=== PATIENT | male | born 1955 | race Caucasian/White ===

== ENCOUNTER → 2016-06-08 | Outpatient (CLI) | payer BC | LOC: MW.CHRC 07:37 | PROVIDERS: ATTEND Family Medicine | DX: E29.1 Testicular hypofunction (principal) | CPT/HCPCS: 36415; 82670; 84402; 84403 ==

== ENCOUNTER 2020-06-03 11:43 | Day surgery (SDC) | payer BC ==
[~2020-06-03 11:43] MED LIST: Lactated Ringers 1,000 ML IV SCH; Lidocaine 2% 5 ML SDV ONE; Midazolam 1 MG/ML 2 ML SDV ONE; Propofol 200 MG/20 ML SDV ONE; Sodium Chloride 0.9% 10 ML SDV IV PRN; Sodium Chloride 0.9% 10 ML Syringe FLUSH PRN; Sodium Chloride 0.9% 2.5 ML Syringe FLUSH PRN; fentaNYL 100 MCG/2 ML SDV ONE
--- NOTE | 2020-06-03 12:30 | PCM.PREANE ---
Preanesthetic Assessment - Anesthesia/Transfusion/Family Hx Anesthesia History: Prior Anesthesia Without Reaction Family History of Anesthesia Reaction: No Transfusion History: No Prior Transfusion(s) - Review of Systems General: No Symptoms Pulmonary: No Symptoms Cardiovascular: No Symptoms Gastrointestinal: No Symptoms Neurological: No Symptoms Other: Reports: None - Physical Assessment NPO Status Date: 06/03/20 NPO Status Time: 00:05 Height: 5 ft 8 in Weight: 168 lb ASA Class: 2 Mental Status: Alert & Oriented x3 Airway Class: Mallampati = 2 Dentition: Reports: Normal Dentition ROM/Head Extension: Full Lungs: Clear to Auscultation, Normal Respiratory Effort Cardiovascular: Regular Rate, Regular Rhythm - Allergies Allergies/Adverse Reactions: Allergies Allergy/AdvReac Type Severity Reaction Status Date / Time No Known Allergies Allergy Verified 06/03/20 12:25 - Anesthesia Plan Pre-Op Medication Ordered: None - Acknowledgements Anesthesia Type Planned: General Anesthesia Pt an Appropriate Candidate for the Planned Anesthesia: Yes Alternatives and Risks of Anesthesia Discussed w Pt/Guardian: Yes Pt/Guardian Understands and Agrees with Anesthesia Plan: Yes Additional Comments: npo tob quit 12 yearaa ago etoh occ on weekends no cv problems bmi 27 par no questions PreAnesthesia Questionnaire HEENT History: Reports: None Cardiovascular History: Reports: None Respiratory History: Reports: None Gastrointestinal History: Reports: None Genitourinary History: Reports: None Musculoskeletal History: Reports: None Neurological History: Reports: None Psychiatric History: Reports: None Endocrine/Metabolic History: Reports: None Hematologic History: Reports: None Immunologic History: Reports: None Oncologic (Cancer) History: Reports: None Dermatologic History: Reports: Eczema - Past Surgical History Head Surgeries/Procedures: Reports: None HEENT Surgical History: Reports: None Cardiovascular Surgical History: Reports: None Respiratory Surgical History: Reports: None GI Surgical History: Reports: Colonoscopy Male Surgical History: Reports: None Endocrine Surgical History: Reports: None Neurological Surgical History: Reports: None Musculoskeletal Surgical History: Reports: None Oncologic Surgical History: Reports: None Dermatological Surgical History: Reports: None - SUBSTANCE USE Tobacco Use Status *Q: Former Tobacco User Tobacco Use Within Last Twelve Months: No Recreational Drug Use History: No - HOME MEDS Home Medications: Home Meds Hcg Injection 1 injection IM ASDIRECTED 05/28/20 [History] Testosterone Cypionate [Testone Cik] 1 injection IM ASDIRECTED 05/28/20 [History] Triamcinolone Acetonide [Triamcinolone Acetonide 0.1% Crm] 1 applic TOP BID PRN 05/28/20 [History] - CURRENT (IN HOUSE) MEDS Current Meds: Current Medications Lactated Ringer's (Ringers, Lactated) 1,000 mls @ 125 mls/hr IV ASDIRECTED ALBERT Last Admin: 06/03/20 12:24 Dose: 125 mls/hr Documented by: Sodium Chloride (Sodium Chloride 0.9% 10 Ml Syringe) 10 ml FLUSH ASDIRECTED PRN PRN Reason: Keep Vein Open Sodium Chloride (Sodium Chloride 0.9% 2.5 Ml Syringe) 2.5 ml FLUSH ASDIRECTED PRN PRN Reason: Keep Vein Open Sodium Chloride (Sodium Chloride 0.9% 10 Ml Syringe) 10 ml FLUSH ASDIRECTED PRN PRN Reason: Keep Vein Open Sodium Chloride (Sodium Chloride 0.9% 2.5 Ml Syringe) 2.5 ml FLUSH ASDIRECTED PRN PRN Reason: Keep Vein Open Sodium Chloride (Sodium Chloride 0.9% 10 Ml Sdv) 10 ml IV ASDIRECTED PRN PRN Reason: IV Use Discontinued Medications Fentanyl (Fentanyl 100 Mcg/2 Ml Sdv) Confirm Administered Dose 100 mcg .ROUTE .STK-MED ONE Stop: 06/03/20 11:21 Lidocaine (Lidocaine 2% 5 Ml Sdv) Confirm Administered Dose 5 ml .ROUTE .STK-MED ONE Stop: 06/03/20 11:18 Midazolam HCl (Midazolam 1 Mg/Ml 2 Ml Sdv) Confirm Administered Dose 2 mg .ROUTE .STK-MED ONE Stop: 06/03/20 11:21 Propofol (Propofol 200 Mg/20 Ml Sdv) Confirm Administered Dose 400 mg .ROUTE .STK-MED ONE Stop: 06/03/20 11:21
[2020-06-03] MEDS ORDERED: Propofol 200 MG/20 ML SDV ONE (14:11)
--- NOTE | 2020-06-03 14:45 | PCM.OPNOTE ---
- General Post-Op/Procedure Note Date of Surgery/Procedure: 06/03/20 Operative Procedure(s): Screening colonoscopy with biopsy and polypectomy Findings: Ascending colon polyp x 2, transverse colon polyps x 2, transverse colon mass biopsied and inked @ 70 cm. Descending colon polyp, diverticulosis. Pre Op Diagnosis: Family history of colon cancer Post-Op Diagnosis: Diverticulosis, ascending colon polyp x 2, descending colon polyp x 1, transverse colon polyp x 2, tranverse colon mass Anesthesia Technique: MAC Primary Surgeon: Henrietta Frausto Condition: Good
--- NOTE | 2020-06-03 15:12 | PCM.POSTAN ---
POST ANESTHESIA ASSESSMENT - MENTAL STATUS Mental Status: Alert (no anesthetic problems), Oriented - VITAL SIGNS Vital Signs: Last Vital Signs Temp 97.7 F 06/03/20 14:27 Pulse 71 06/03/20 15:03 Resp 13 06/03/20 15:03 BP 98/69 06/03/20 15:03 Pulse Ox 92 L 06/03/20 15:03 - RESPIRATORY Respiratory Status: Respiratory Rate WNL, Airway Patent, O2 Saturation Stable - CARDIOVASCULAR CV Status: Pulse Rate WNL, Blood Pressure Stable - GASTROINTESTINAL GI Status: No Symptoms - POST OP HYDRATION Hydration Status: Adequate & Stable
--- NOTE | 2020-06-03 15:35 | PCM48HPAN ---
Post Anesthesia Note - EVALUATION WITHIN 48HRS OF ANESTHETIC Vital Signs in Normal Range: Yes Patient Participated in Evaluation: Yes Respiratory Function Stable: Yes Airway Patent: Yes Cardiovascular Function Stable: Yes Hydration Status Stable: Yes Pain Control Satisfactory: Yes (Denies pain) Nausea and Vomiting Control Satisfactory: Yes Mental Status Recovered: Yes Vital Signs: Last Vital Signs Temp 36.5 C 06/03/20 14:27 Pulse 71 06/03/20 15:03 Resp 13 06/03/20 15:03 BP 98/69 06/03/20 15:03 Pulse Ox 92 L 06/03/20 15:03 - COMMENTS/OBSERVATIONS Free Text/Narrative:: O2 SAT 94% on RA
--- NOTE | 2020-06-04 16:23 | OR ---
SURGEON: HENRIETTA FRAUSTO MD DATE OF PROCEDURE: 06/03/2020 PREOPERATIVE DIAGNOSIS: Family history of colon cancer. POSTOPERATIVE DIAGNOSES: 1. Ascending colon polyps x2. 2. Transverse colon polyps x2. 3. Transverse colon mass at 70 cm. 4. Descending colon polyp. 5. Diverticulosis. PROCEDURE PERFORMED: Screening colonoscopy with polypectomy and biopsy. PRIMARY SURGEON: Henrietta Frausto MD ANESTHESIA: MAC. INSTRUMENT USED: Olympus colonoscope. EXTENT OF EXAM: To the cecum. PREPARATION: Good. LIMITATIONS: None. INDICATIONS FOR EXAMINATION: The patient is a 65-year-old male who presents to clinic for screening colonoscopy. His brother was diagnosed with colon cancer and his mother possibly had colon cancer as well. He had a colonoscopy 10 years ago, which was normal. I explained the need for repeat colonoscopy. I explained the procedure, expected perioperative course, and the risks. He verbalized understanding and wishes to proceed. PROCEDURE IN DETAIL: The patient was brought to the endoscopy suite and placed in the left lateral decubitus position. A time-out was completed verifying the patient's name, age, date of , allergies, and procedure to be performed. Monitored anesthesia care was induced and continuous oxygen was provided via nasal cannula throughout the procedure. After adequate sedation was achieved, a digital rectal exam was performed. This exam was within normal limits. A well-lubricated colonoscope was inserted into the rectum and advanced under direct visualization to the level of the cecum. The cecum was identified by both visual and anatomic landmarks. A photograph was taken of the cecal cap; however, due to looping of the scope more proximally, I was unable to retroflex the scope within the cecum. The scope was then fully withdrawn while examining the color, texture, anatomy, and integrity of mucosa from the cecum to the anal canal. The patient was noted to have 2 ascending colon polyps. These were small and sessile. They were removed in piecemeal fashion using cold biopsy forceps. A photograph was taken of ascending colon polyp #1. Both were sent to Pathology. Just distal to the hepatic flexure, I noticed a small transverse colon polyp. This was removed in piecemeal fashion using cold biopsy forceps. Another larger polyp was noted. This was removed in piecemeal fashion labeled as transverse colon polyp #2. Just distal to this but still within the proximal transverse colon at 70 cm, the patient was noted to have a large sessile polyp that encompassed half of the circumference of the colonic fold. This was too large for me to remove safely, so a biopsy was taken. This was sent to Pathology, labeled as transverse colon mass. For identification in the future, I submucosally injected 1 mL of ink. The scope was continued to be withdrawn, and there was a sessile polyp within the descending colon, which was removed in a similar manner. The patient was also noted to have diverticulosis within the sigmoid colon. The scope was brought into the rectum and retroflexed to allow visualization of the anal canal opening. This appeared normal, and a photograph was taken. The scope was then straightened out and fully withdrawn. The cecum to anus time was greater than 20 minutes. The patient tolerated the procedure well and was transferred to the PACU in stable condition. ENDOSCOPIC DIAGNOSES: 1. Ascending colon polyps x2. 2. Transverse colon polyps x2. 3. Transverse colon mass at 70 cm. 4. Descending colon polyp. 5. Diverticulosis. RECOMMENDATIONS: I visited with the patient and his in the postoperative care area. I will refer him to a service engine repairer or colorectal surgeon who maybe able to endoscopically resect this larger polyp in the transverse colon. We will call him with the biopsy results and coordinate the referral. MARIANNA MOORE /[id number]
== END 2020-06-03 15:49 | disposition home or self-care (01) ==
LOC: MW.SDS 11:43
PROVIDERS: ATTEND Surgery
DX: Z12.11 Encounter for screening for malignant neoplasm of colon (principal); D12.2 Benign neoplasm of ascending colon; D12.3 Benign neoplasm of transverse colon; D12.4 Benign neoplasm of descending colon; Z80.0 Family history of malignant neoplasm of digestive organs; K57.30 Diverticulosis of large intestine without perforation or abscess without bleeding; E78.5 Hyperlipidemia, unspecified; Z79.899 Other long term (current) drug therapy; Z98.890 Other specified postprocedural states; Z87.891 Personal history of nicotine dependence
CPT/HCPCS: 45380; 45381; J2250; J2704; J3010; J7120; 00812; 88305

== ENCOUNTER 2023-08-16 07:50 | Day surgery (SDC) | payer BC ==
[~2023-08-16 07:50] MED LIST changes: -Lactated Ringers 1,000 ML IV SCH; -Lidocaine 2% 5 ML SDV ONE; -Midazolam 1 MG/ML 2 ML SDV ONE; -Propofol 200 MG/20 ML SDV ONE; -Sodium Chloride 0.9% 10 ML SDV IV PRN; +Sodium Chloride 0.9% 20 ML SDV IV PRN; -fentaNYL 100 MCG/2 ML SDV ONE
[2023-08-16] MEDS: Lactated Ringers 1,000 ML IV SCH (08:15)
[2023-08-16] MEDS ORDERED: Propofol 200 MG/20 ML SDV ONE (09:20)
[2023-08-16] MEDS ORDERED: Lidocaine 2% 5 ML SDV ONE (09:20)
== END 2023-08-16 10:15 | disposition home or self-care (01) ==
LOC: MW.SDS 07:50
PROVIDERS: ATTEND Surgery
DX: Z12.11 Encounter for screening for malignant neoplasm of colon (principal); D12.5 Benign neoplasm of sigmoid colon; K57.30 Diverticulosis of large intestine without perforation or abscess without bleeding; J45.909 Unspecified asthma, uncomplicated; E78.5 Hyperlipidemia, unspecified; Z86.010 Personal history of colon polyps; Z90.49 Acquired absence of other specified parts of digestive tract; Z79.890 Hormone replacement therapy; Z87.891 Personal history of nicotine dependence
CPT/HCPCS: 45385; J2704; J7120; 00811; J3490